=== PATIENT | female | born 1995 | race Caucasian/White ===

== ENCOUNTER 2024-04-06 06:26 | Day surgery (SDC) | payer BC, SELFPAY ==
[2024-03-30 10:17] LABS: Hematocrit 41.2 % (37.0-47.0); Hemoglobin 14.1 g/dL (12.0-16.0); Mean Corp Hgb Conc. 34.2 g/dL (33.0-37.0); Mean Corpuscular Hgb 30.3 pg (27.0-31.0); Mean Corpuscular Volume 88.4 fL (81.0-99.0); Mean Platelet Volume 10.6 fL (7.4-10.4); Platelet Count 216 10^3/uL (130-400); Red Blood Cell Count 4.66 10^6/uL (4.20-5.40); White Blood Cell Count 7.2 10^3/uL (4.8-10.8)
[2024-03-30 10:45] LABS: INR 1.06; PT 14.1 Sec (11.4-14.6)
[2024-03-30 10:59] LABS: ALT (SGPT) 15 U/L (0-35); AST (SGOT) 22 U/L (14-36); Albumin 4.5 g/dl (3.5-5.0); Alkaline Phosphatase 50 U/L (38-126); Blood Urea Nitrogen 11 mg/dl (7-17); Calcium 8.9 mg/dl (8.4-10.2); Carbon Dioxide 27 mmol/L (22-30); Chloride 102 mmol/L (98-107); Glucose 79 mg/dl (70-99); Potassium 3.8 mmol/L (3.5-5.1); Sodium 136 mmol/L (135-145); Total Bilirubin 0.9 mg/dl (0.2-1.3); Total Protein 6.7 g/dl (6.3-8.2); eGFR > 60.00
[2024-03-30 14:07] VITALS: BMI 19.6
--- NOTE | 2024-03-31 13:22 | PTCARENOTE ---
Abn ECG, Dr. Lea made aware, 'Ok if stable', no requests made.
[2024-04-06] VITALS (8 sets, daily range): BP systolic 102–124; BP diastolic 58–77; BMI 19.6
[2024-04-06] MEDS: HEPARIN 5000 UNITS SC (07:00)
[2024-04-06] MEDS: TYLENOL 1000 MG PO (07:00)
[2024-04-06] MEDS: NEURONTIN 300 MG PO (07:00)
[2024-04-06] MEDS: NORMOSOL-R/PLASMALYTE-A 1000 IV (07:02)
--- NOTE | 2024-04-06 09:30 | OR.RPT ---
Operative Report
Operative Report
PATIENT NAME: Shayy Briones
DATE OF : 1995
DATE OF OPERATION: April 06, 2024
PREOPERATIVE DIAGNOSIS: Right Thyroid Nodule - E041
POSTOPERATIVE DIAGNOSIS: Right Substernal Nodular Goiter
SURGEON: Miguel Rashid M.D.
OPERATION: Resection of the Right Substernal Goiter - 23176
ANESTHESIA: GET
ESTIMATED BLOOD LOSS: 50 cc
DRAINS: None
SPECIMEN: right total thyroid lobe and isthmus
FINDINGS: Right Substernal Nodular Goiter
COMPLICATIONS:� None
PROCEDURE:
The patient was taken to the operating room and placed in the usual supine position. After adequate general endotracheal anesthesia was established, the patient�s neck was extended, prepped, and draped in the typical sterile fashion. A 5 cm
transcervical incision was made two fingerbreadths above the sternal notch. The skin incision was made with the #15 blade, which was taken through the skin into the subcutaneous tissue. The underlying platysma muscle was divided, and subplatysmal
flaps were created superiorly to the thyroid cartilage and inferiorly to the sternal notch. Strap muscles were identified and at the midline.
Attention was turned to the patient�s right thyroid lobe. The right thyroid lobe was mobilized medially. During this process, the right middle thyroid vein and inferior thyroid artery were dissected and ligated with Ligasure. There was a substernal
extension, which was delivered out of the mediastinum through the cervical incision. Next, the right superior pole was taken down by dissecting and transecting the superior pole vessels with a Ligasure. The right thyroid lobe was mobilized medially.
During this process, the right recurrent laryngeal nerve was identified and preserved throughout its entire course. The right superior parathyroid gland was identified and preserved. The right thyroid lobe with isthmus was resected off the trachea
and sent to the pathology department.
After obtaining adequate hemostasis, the strap muscle was approximated with #3-0 Vicryl in a running fashion, and platysma muscles were reapproximated with #3-0 Vicryl in an interrupted fashion, and the skin was approximated with #4-0 Monocryl in a
running subcuticular fashion. Steri-strips and sterile dressings were placed. The patient tolerated the procedure well. The final instrument, needle, and sponge counts were correct.
== END 2024-04-06 11:00 | disposition home or self-care (01) ==
LOC: SDS 06:26
PROVIDERS: ATTENDING PHYSICIAN Surgery; FAMILY PHYSICIAN Internal Medicine
DX: E04.1 Nontoxic single thyroid nodule (principal); E04.9 Nontoxic goiter, unspecified; C73 Malignant neoplasm of thyroid gland; E06.3 Autoimmune thyroiditis
CPT/HCPCS: 60271; 88305; 88307; 36415; 80053; 85027; 85610; 85730; 93005; C1776